=== PATIENT | male | born 1980 | race Hispanic/Latino ===

== ENCOUNTER 2018-03-03 20:39 | Emergency (ER) | payer OTHER, SELFPAY | END 2018-03-03 22:53 | disposition home or self-care (01) | LOC: EDH 20:39 | DX: S82.55XA Nondisplaced fracture of medial malleolus of left tibia, initial encounter for closed fracture (principal); Z72.0 Tobacco use; V86.59XA Driver of other special all-terrain or other off-road motor vehicle injured in nontraffic accident, initial encounter; Y93.89 Activity, other specified; Y92.89 Other specified places as the place of occurrence of the external cause; Y99.8 Other external cause status | CPT/HCPCS: 29515; 71045; 73562; 73610; 73630; 99291 ==